=== PATIENT | female | born 1975 | race African-American/Black ===

== ENCOUNTER 2020-08-24 22:14 | Emergency (ER) | payer MEDICAID ==
[~2020-08-24] VITALS: Ht 165.1 cm; Wt 50.0 kg
[2020-08-24] MEDS ORDERED: FLUORESCEIN SODIUM 1 MG STRIP ONE ×2 (22:55→23:04)
[2020-08-24] MEDS ORDERED: PROPARACAINE HCL 0.5% 15 ML OPHTHALMIC SOLUTION ONE (22:55)
[2020-08-24 23:49] VITALS: BP 127/73
== END 2020-08-25 03:29 | disposition home or self-care (01) ==
LOC: EMS 22:14
DX: H16.002 Unspecified corneal ulcer, left eye (principal)

== ENCOUNTER 2020-12-20 20:26 | Emergency (ER) | payer MEDICAID ==
[~2020-12-20] VITALS: Ht 162.6 cm; Wt 45.5 kg
[2020-12-20] MEDS ORDERED: CEPHALEXIN MONOHYDRATE 500 MG CAPSULE PO ONE (23:45)
[2020-12-20] MEDS ORDERED: DOXYCYCLINE HYCLATE 100 MG TABLET PO ONE (23:45)
[2020-12-20] MEDS ORDERED: IBUPROFEN 600 MG TABLET PO ONE (23:45)
[2020-12-21 00:28] VITALS: BP 125/63
== END 2020-12-21 00:30 | disposition home or self-care (01) ==
LOC: EMS 20:30
DX: S63.610A Unspecified sprain of right index finger, initial encounter (principal); S29.012A Strain of muscle and tendon of back wall of thorax, initial encounter; L03.011 Cellulitis of right finger; X58.XXXA Exposure to other specified factors, initial encounter; Y93.89 Activity, other specified; Y92.89 Other specified places as the place of occurrence of the external cause; Y99.8 Other external cause status
CPT/HCPCS: 99284; 73140-TC; Z7502; Z7610

== ENCOUNTER 2021-12-25 10:29 | Emergency (ER) | payer MEDICAID ==
[~2021-12-25] VITALS: Ht 165.1 cm; Wt 45.0 kg
[2021-12-25] MEDS ORDERED: ACETAMINOPHEN 500 MG TABLET PO ONE (11:15)
[2021-12-25] MEDS ORDERED: BACITRACIN 0.9 GM PACKET OINTMENT TP ONE (11:15)
[2021-12-25 12:29] VITALS: BP 103/76
== END 2021-12-25 13:32 | disposition home or self-care (01) ==
LOC: EMS 10:29
DX: S90.511A Abrasion, right ankle, initial encounter (principal); S90.414A Abrasion, right lesser toe(s), initial encounter; M79.671 Pain in right foot; Z90.710 Acquired absence of both cervix and uterus; V03.90XA Pedestrian on foot injured in collision with car, pick-up truck or van, unspecified whether traffic or nontraffic accident, initial encounter; Y93.89 Activity, other specified; Y92.89 Other specified places as the place of occurrence of the external cause; Y99.8 Other external cause status
CPT/HCPCS: 99284; 73610-TC; 73630-TC; Z7502; Z7610